=== PATIENT | male | born 1970 | race Caucasian/White ===

== ENCOUNTER 2016-12-15 09:08 | Emergency (ER) | payer BC ==
[2016-12-15] MEDS ORDERED: RX INFO: IV CONTRAST WAS GIVEN 1 EACH MISC MISCELLANE PRN (09:36)
--- NOTE | 2016-12-15 09:43 | ED ---
Eye Problem [facility] - General Chief complaint: Eye Problems Stated complaint: Vision Problems Time Seen by Provider: 12/15/16 09:30 Source: patient Mode of arrival: ambulatory Limitations: no limitations - History of Present Illness Initial comments: This is a 46-year-old male with a benign past medical history states he had the onset about 8:20 AM this morning of visual field problems. He states in the right upper outer quadrant of both eyes ecchymosis right eye he had visual defect and almost the appearance of a fanlike movement in the right upper outer quadrant. No associated headache other than some tightness around his head fevers chills sweats no trauma no prior episodes of any visual problems no history of strokes. He does say he's had intermittent episodes of left inner arm pain or discomfort recently he does attribute this however to doing a lot of yard work and cutting trees. He does not smoke he occasionally drinks street drugs again no trauma there only he has 20/20 vision. He does state the sensation or abnormality is improving though still slightly there. He has no history of clotting disorders no history of any migraine headaches thyroid disease. MD chief complaint: vision change - Related Data Home Medications Medication Instructions Recorded Confirmed No Known Home Medications [No 12/15/16 12/15/16 Known Home Medications] Allergies Allergy/AdvReac Type Severity Reaction Status Date / Time No Known Allergies Allergy Verified 12/15/16 10:28 Review of Systems ROS Statement: Those systems with pertinent positive or pertinent negative responses have been documented in the HPI. ROS Other: All systems not noted in ROS Statement are negative. Past Medical History Past Medical History: Chest Pain / Angina Additional Past Medical History / Comment(s): 04/26/15 Pt presented to [facility] ER with chest discomfort which started a couple hours prior to arrival. Discomfort is difficult for pt to discribe, it waxes and wanes and radiates to back and neck. Pt is being admitted with clinical impression of chest pain. History of Any Multi-Drug Resistant Organisms: None Reported Additional Past Surgical History / Comment(s): dental surgery as a child Past Anesthesia/Blood Transfusion Reactions: No Reported Reaction Past Psychological History: No Psychological Hx Reported Smoking Status: Former smoker Past Alcohol Use History: Occasional Past Drug Use History: None Reported - Past Family History Father Family Medical History: Unable to Obtain Additional Family Medical History / Comment(s): Father had to have a colectomy but pt does not know for what reason. He in a helicopter accident at age 61 yrs. Mother Additional Family Medical History / Comment(s): Mother is over weight. She is 65 yrs old. General Exam - General Exam Comments Initial Comments: This is a well-developed well-nourished awake alert oriented 3 male Limitations: no limitations General appearance: alert, in no apparent distress Head exam: Present: atraumatic, normocephalic, normal inspection Eye exam: Present: normal appearance, PERRL, EOMI. Absent: scleral icterus, conjunctival injection, periorbital swelling ENT exam: Present: normal exam, mucous membranes moist Neck exam: Present: normal inspection. Absent: tenderness, meningismus, lymphadenopathy Respiratory exam: Present: normal lung sounds bilaterally. Absent: respiratory distress, wheezes, rales, rhonchi, stridor Cardiovascular Exam: Present: regular rate, normal rhythm, normal heart sounds. Absent: systolic murmur, diastolic murmur, rubs, gallop, clicks GI/Abdominal exam: Present: soft, normal bowel sounds. Absent: distended, tenderness, guarding, rebound, rigid Extremities exam: Present: normal inspection, full ROM, normal capillary refill. Absent: tenderness, pedal edema, joint swelling, calf tenderness Back exam: Present: normal inspection Neurological exam: Present: alert, oriented X3, CN II-XII intact Psychiatric exam: Present: normal affect, normal mood Skin exam: Present: warm, dry, intact, normal color. Absent: rash Course Vital Signs 12/15/16 12/15/16 12/15/16 09:11 09:55 10:25 Temperature 97.9 F Pulse Rate 71 82 58 L Respiratory 18 15 16 Rate Blood Pressure 140/89 104/45 130/80 O2 Sat by Pulse 96 91 L 99 Oximetry 12/15/16 10:55 Temperature Pulse Rate 58 L Respiratory 15 Rate Blood Pressure 133/81 O2 Sat by Pulse 99 Oximetry Medical Decision Making - Medical Decision Making I did discuss the findings with the patient who is feeling somewhat better also discuss case with . Patient will be discharged with follow-up with Dr. Robert's office today - Lab Data Result diagrams: 12/15/16 09:45 12/15/16 09:45 Lab Results 12/15/16 12/15/16 12/15/16 Range/Units 09:45 09:45 09:45 WBC 4.8 (3.8-10.6) k/uL RBC 5.23 (4.30-5.90) m/uL Hgb 16.3 (13.0-17.5) gm/dL Hct 44.9 (39.0-53.0) % MCV 85.8 (80.0-100.0) fL MCH 31.2 (25.0-35.0) pg MCHC 36.4 (31.0-37.0) g/dL RDW 13.1 (11.5-15.5) % Plt Count 186 (150-450) k/uL Neutrophils % 58 % Lymphocytes % 30 % Monocytes % 6 % Eosinophils % 4 % Basophils % 1 % Neutrophils # 2.7 (1.3-7.7) k/uL Lymphocytes # 1.4 (1.0-4.8) k/uL Monocytes # 0.3 (0-1.0) k/uL Eosinophils # 0.2 (0-0.7) k/uL Basophils # 0.0 (0-0.2) k/uL PT 10.0 (9.0-12.0) sec INR 1.0 (<1.1) Sodium 143 (137-145) mmol/L Potassium 4.4 (3.5-5.1) mmol/L Chloride 106 (98-107) mmol/L Carbon Dioxide 26 (22-30) mmol/L Anion Gap 11 mmol/L BUN 15 (9-20) mg/dL Creatinine 1.10 (0.66-1.25) mg/dL Est GFR (MDRD) Af Amer >60 (>60 ml/min/1.73 sqM) Est GFR (MDRD) Non-Af >60 (>60 ml/min/1.73 sqM) Glucose 82 (74-99) mg/dL Calcium 9.6 (8.4-10.2) mg/dL Magnesium 2.1 (1.6-2.3) mg/dL Total Bilirubin 0.5 (0.2-1.3) mg/dL AST 47 (17-59) U/L ALT 96 H (21-72) U/L Alkaline Phosphatase 55 (38-126) U/L Total Creatine Kinase (55-170) U/L CK-MB (CK-2) (0.0-2.4) ng/mL CK-MB (CK-2) Rel Index Troponin I (0.000-0.034) ng/mL C-Reactive Protein 6.3 (<10.0) mg/L Total Protein 7.5 (6.3-8.2) g/dL Albumin 4.8 (3.5-5.0) g/dL TSH 4.270 (0.465-4.680) mIU/L 12/15/16 Range/Units 09:45 WBC (3.8-10.6) k/uL RBC (4.30-5.90) m/uL Hgb (13.0-17.5) gm/dL Hct (39.0-53.0) % MCV (80.0-100.0) fL MCH (25.0-35.0) pg MCHC (31.0-37.0) g/dL RDW (11.5-15.5) % Plt Count (150-450) k/uL Neutrophils % % Lymphocytes % % Monocytes % % Eosinophils % % Basophils % % Neutrophils # (1.3-7.7) k/uL Lymphocytes # (1.0-4.8) k/uL Monocytes # (0-1.0) k/uL Eosinophils # (0-0.7) k/uL Basophils # (0-0.2) k/uL PT (9.0-12.0) sec INR (<1.1) Sodium (137-145) mmol/L Potassium (3.5-5.1) mmol/L Chloride (98-107) mmol/L Carbon Dioxide (22-30) mmol/L Anion Gap mmol/L BUN (9-20) mg/dL Creatinine (0.66-1.25) mg/dL Est GFR (MDRD) Af Amer (>60 ml/min/1.73 sqM) Est GFR (MDRD) Non-Af (>60 ml/min/1.73 sqM) Glucose (74-99) mg/dL Calcium (8.4-10.2) mg/dL Magnesium (1.6-2.3) mg/dL Total Bilirubin (0.2-1.3) mg/dL AST (17-59) U/L ALT (21-72) U/L Alkaline Phosphatase (38-126) U/L Total Creatine Kinase 239 H (55-170) U/L CK-MB (CK-2) 2.5 H* (0.0-2.4) ng/mL CK-MB (CK-2) Rel Index 1.0 Troponin I <0.012 (0.000-0.034) ng/mL C-Reactive Protein (<10.0) mg/L Total Protein (6.3-8.2) g/dL Albumin (3.5-5.0) g/dL TSH (0.465-4.680) mIU/L - EKG Data -: EKG Interpreted by Ct EKG shows normal: sinus rhythm, axis, intervals, QRS complexes, ST-T waves (EKG shows normal sinus rhythm a 66 OK interval 144 QRS 88 QT/QTC of 394/[address]-T wave changes.) Rate: normal - Radiology Data Radiology results: report reviewed (I did review the imaging and reports no acute findings or some evidence of ethmoid sinus disease and a question strabismus.), image reviewed Disposition Clinical Impression: Visual disturbance Disposition: HOME SELF-CARE Condition: Good Instructions: Blurred Vision (ED) Referrals: None,Stated [Primary Care Provider] - 1-2 days Chad Robert MD [STAFF PHYSICIAN] - 1-2 days
[2016-12-15 10:05] LABS: Basophils % (A) 1 %; CH 30.9; CHCM 36.2; Eosinophils # (A) 0.2 k/uL (0-0.7); Eosinophils % (A) 4 %; HCT 44.9 % (39.0-53.0); HDW 2.76; HGB 16.3 gm/dL (13.0-17.5); Luc % (Auto) 2; Lymphocytes # (A) 1.4 k/uL (1.0-4.8); Lymphocytes % (A) 30 %; MCH 31.2 pg (25.0-35.0); MCHC 36.4 g/dL (31.0-37.0); MCV 85.8 fL (80.0-100.0); Mean Platelet Volume 7.4; Monocytes # (A) 0.3 k/uL (0-1.0); Monocytes % (A) 6 %; Neutrophils # (A) 2.7 k/uL (1.3-7.7); Neutrophils % (A) 58 %; RBC 5.23 m/uL (4.30-5.90); RDW 13.1 % (11.5-15.5); WBC 4.8 k/uL (3.8-10.6); WBC (Perox) 4.56
[2016-12-15 10:19] LABS: ALT 96 U/L (21-72); AST 47 U/L (17-59); Alkaline Phosphatase 55 U/L (38-126); Anion Gap 11 mmol/L; Blood Urea Nitrogen 15 mg/dL (9-20); C Reactive Protein 6.3 mg/L (<10.0); Calcium 9.6 mg/dL (8.4-10.2); Carbon Dioxide 26 mmol/L (22-30); Chloride 106 mmol/L (98-107); Glucose 82 mg/dL (74-99); Magnesium 2.1 mg/dL (1.6-2.3); Non-African American GFR(MDRD) >60 (>60 ml/min/1.73 sqM); Potassium 4.4 mmol/L (3.5-5.1); Sodium 143 mmol/L (137-145); Total Bilirubin 0.5 mg/dL (0.2-1.3); Total Protein 7.5 g/dL (6.3-8.2)
[2016-12-15 10:31] LABS: Creatine Kinase 239 U/L (55-170)
[2016-12-15 10:42] LABS: Troponin I <0.012 ng/mL (0.000-0.034)
[2016-12-15 10:44] LABS: Creatine Kinase MB 2.5 ng/mL (0.0-2.4)
--- NOTE | 2016-12-15 10:49 | CT ---
EXAMINATION TYPE: CT brain wo con DATE OF EXAM: 12/15/2016 COMPARISON: NONE HISTORY: 46-year-old male visual disturbance TECHNIQUE: Examination was done in axial plane without intravenous contrast. Coronal and sagittal r econstructions performed. CT DLP: 1218.3 mGycm Automated exposure control for dose reduction was used. FINDINGS: There is no evidence of acute intracranial hemorrhage, acute ischemic changes, mass, mass-effect, or extra-axial fluid collection. There is no effacement of cerebral sulci or basal subarachnoid cister ns. There is no hydrocephalus. There is no midline shift. [place]-white matter distinction is preserv ed. Mild to moderate mucosal thickening within the ethmoid air cells. Mastoid air cells well pneumatized. Patient's gaze is slightly divergent suggesting underlying strabismus. IMPRESSION: No acute intracranial abnormality seen. Mild chronic ethmoid sinus disease. Possible slight underlyin g strabismus.
--- NOTE | 2016-12-15 10:56 | CT ---
EXAMINATION TYPE: CT angio head neck DATE OF EXAM: 12/15/2016 COMPARISON: NONE HISTORY: 46-year-old male with pain, Visual disturbance TECHNIQUE: Contiguous axial scanning of the head and neck performed with IV Contrast, patient injecte d with 65 mL of Omnipaque 350. Coronal/sagittal MIP reconstructions performed. 3-D reconstructions ge nerated on a dedicated independent workstation. 3-D vessel probe was utilized for detailed analysis. CT DLP: 438.67 mGycm Automated exposure control for dose reduction was used. FINDINGS: NECK: Conventional arch vessel branching anatomy. The vertebral artery origins are patent and the vertebral arteries are codominant and patent througho ut their course. The common carotid arteries and internal carotid arteries are widely patent. There is some tortuosity to the upper cervical ICAs, particularly on the left. HEAD: The intracranial ICAs, vertebral arteries, and basilar arteries remain patent. Both anterior and post erior circulations are evaluated. No significant stenosis, arterial occlusion, or aneurysmal change i s identified. IMPRESSION: 1. UNREMARKABLE CTA OF THE NECK. 2. UNREMARKABLE CTA OF THE [place].
[2016-12-15 12:09] VITALS: BP 145/83; PULSE 66; RESP 20
[2016-12-15 12:19] VITALS: TEMP 97.1
== END 2016-12-15 12:18 | disposition home or self-care (01) ==
LOC: EC 09:08
DX: H53.9 Unspecified visual disturbance (principal); R58 Hemorrhage, not elsewhere classified; M79.602 Pain in left arm; R68.89 Other general symptoms and signs; Z87.891 Personal history of nicotine dependence
CPT/HCPCS: 36415; 93005; 80053; 84443; 82550; 82553; 83735; 84484; 85025; 85610; 86140; 70496; 70450; 70498; 99284; Q9967